=== PATIENT | female | born 1995 | race Caucasian/White ===

== ENCOUNTER 2018-07-26 11:44 | Emergency (ER) | payer OTHER ==
--- NOTE | 2018-07-26 12:13 | ED Physician Documentation ---
PD HPI GI BLEED - Stated complaint Stated Complaint: CRAMPING/RECTAL BLEEDING - Chief complaint Chief Complaint: Abd Pain - History obtained from History obtained from: Patient - History of Present Illness Timing - onset: How many weeks ago (1) Timing - duration: Weeks (1) Timing - details: Still present (more consistent and severe the past 1-2 days.), Intermittant Associated symptoms: Other (cramping lower abd pains bilaterally and in suprapubic area. Has had it worse and more often since yesterday. Was doubled over today. Had BM of formed stool and noted red blood when wiping after. Went again few minutes later and some red blood by itself (no clots). No dysuria. No vaginal bleeding.) Contributing factors: No: Sick contact, Bad food, Recent antibiotics Improved by: No: Eating Worsened by: No: Eating Similar symptoms before: No diagnosis (has had similar cramps prior to menses the past several months or more. This is worst so far and longer (usually starts period in 2-3 days after onset of the cramps).) Recently seen: Not recently seen Review of Systems Constitutional: denies: Fever, Chills, Myalgias Nose: denies: Rhinorrhea / runny nose, Congestion Throat: denies: Sore throat Cardiac: denies: Chest pain / pressure Respiratory: denies: Cough GI: reports: Abdominal Pain, Bloody / black stool (just today after having formed BM.). denies: Nausea, Vomiting, Diarrhea : reports: Missed period (was due for it about a week ago). denies: Dysuria, Frequency, Discharge Skin: denies: Rash, Lesions PD PAST MEDICAL HISTORY - Past Medical History Cardiovascular: None Respiratory: None Neuro: None Endocrine/Autoimmune: None GI: Hemorrhoids RN PSYCH: None (no known endometriosis, but FH of it. ) - Present Medications Home Medications: Ambulatory Orders Medication Instructions Recorded Confirmed Naproxen [Naprosyn] 500 mg PO BID PRN #30 tablet 07/26/18 Tramadol HCl 50 mg PO Q6H PRN #20 tablet 07/26/18 - Allergies Allergies/Adverse Reactions: Allergies Allergy/AdvReac Type Severity Reaction Status Date / Time No Known Drug Allergies Allergy Verified 07/26/18 11:54 PD ED PE NORMAL - Vitals Vital signs reviewed: Yes - General General: Alert and oriented X 3, Well developed/nourished, Other (appears uncomfortable due to lower abd cramping. ) - HEENT HEENT: Pharynx benign - Neck Neck: Supple, no meningeal sign, No adenopathy - Cardiac Cardiac: RRR, No murmur - Respiratory Respiratory: Clear bilaterally - Abdomen Abdomen: Normal bowel sounds, Soft, Non distended, No organomegaly, Other (tender lower abd/suprapubic area, left more than right. No guarding nor percussion tenderness. ) - Female Female : Deferred - Rectal Rectal: Other (k[employer] Tech in room. External with slight fissure at left lateral. Small internal hemorrhoid that is tender. Minimal stool in vault, which is guiac negative. ) - Back Back: No CVA TTP - Derm Derm: Normal color Results - Vitals Vitals: Vital Signs - 24 hr 07/26/18 11:51 Temperature 35.6 C L Heart Rate 58 L Respiratory 16 Rate Blood Pressure 118/85 H O2 Saturation 100 Oxygen O2 Source Room air - Rads (name of study) pelvic U/S Radiology: Prelim report reviewed (trace free fluid. No ovarian torsion. no cysts. ) Departure - Departure Disposition: 01 Home, Self Care Clinical Impression: Internal hemorrhoid, bleeding, Pelvic pain, Dysmenorrhea Condition: Stable Record reviewed to determine appropriate education?: Yes Instructions: ED Cramping Menstrual Follow-Up: [facility] [Provider Group] Prescriptions: Naproxen [Naprosyn] 500 mg PO BID PRN #30 tablet PRN Reason: Pain Tramadol HCl 50 mg PO Q6H PRN #20 tablet PRN Reason: Pain Comments: The red blood you had with your bowel movement seems to be from a small hemorrhoid. That should be okay. Your ultrasound did not show any obvious abnormality. There is good blood flow to the ovaries and no cysts or signs of bleeding. Presume its painful menstrual cramps. The ultrasound does not exclude endometriosis. Initially I would suggest some anti-inflammatories regularly twice a day for a week at the onset of your cramps until the.. Add Tylenol or tramadol if needed for worse pain. Follow-up with gynecology office regarding further evaluation and treatment. Discharge Date/Time: 07/26/18 15:31
[2018-07-26] MEDS ORDERED: HYDROcod/ACETAM 5/325 MG TABLET PO STA (12:42)
[2018-07-26] MEDS ORDERED: IBUPROFEN 600 MG TABLET PO STA (12:42)
[2018-07-26 13:09] LABS: BILIRUBIN,URINE NEGATIVE (NEGATIVE); GLUCOSE, URINE (UA) NEGATIVE (NEGATIVE); KETONES,URINE (UA) NEGATIVE (NEGATIVE); LEUKOCYTE ESTERASE, URINE NEGATIVE (NEGATIVE); NITRITE,URINE NEGATIVE (NEGATIVE); OCCULT BLOOD,URINE LARGE (NEGATIVE); PROTEIN,URINE 30 mg/dL (NEGATIVE); UROBILINOGEN,URINE 0.2 (NORMAL) E.U./dL (NORMAL)
[2018-07-26 13:11] LABS: CLARITY,URINE CLOUDY (CLEAR); HCG UR QUAL NEGATIVE
[2018-07-26 13:16] LABS: BACTERIA,URINE Few /HPF (None Seen); RBC,URINE TNTC /HPF (0-5); SQUAMOUS EPITHELIAL CELL,UR FEW Squamous (<= Few)
[2018-07-26 13:43] LABS: BASOPHILS % (AUTO) 0.3 %; EOSINOPHILS # (AUTO) 0.1 10^3/uL (0.0-0.7); EOSINOPHILS % (AUTO) 1.2 %; HGB - HEMOGLOBIN 13.9 g/dL (12.0-16.0); LYMPHOCYTES # (AUTO) 1.1 10^3/uL (1.5-3.5); LYMPHOCYTES % (AUTO) 11.4 %; MEAN CORPUSCULAR HEMOGLOBIN 28.5 pg (27.0-31.0); MEAN CORPUSCULAR HGB CONC 34.2 g/dL (32.0-36.0); MEAN CORPUSCULAR VOLUME 83.2 fL (81.0-99.0); MEAN PLATELET VOLUME 10.7 fL (7.9-10.8); MONOCYTES # (AUTO) 0.4 10^3/uL (0.0-1.0); MONOCYTES % (AUTO) 4.3 %; NEUTROPHILS # (AUTO) 7.8 10^3/uL (1.5-6.6); NEUTROPHILS % (AUTO) 82.8 %; PLT - PLATELET COUNT 190 10^3/uL (130-450); RED BLOOD COUNT 4.88 10^6/uL (4.20-5.40); WHITE BLOOD COUNT 9.4 x10^3/uL (4.8-10.8)
--- NOTE | 2018-07-26 14:50 | Ultrasound Report ---
Reason: lower abd/pelvic cramping for few days, severe Procedure Date: 07/26/2018 Accession Number: [id number] / [id number] Procedure: US - Pelvic w/Doppler Limited CPT Code: FULL RESULT: EXAM: PELVIC ULTRASOUND EXAM DATE: 07/26/2018 02:26 PM. CLINICAL HISTORY: Lower abd/pelvic cramping for few days, severe. COMPARISON: None available. TECHNIQUE: Realtime transabdominal pelvic scan performed to identify the uterus and adnexa and as an overview of other pelvic structures with static image documentation. FINDINGS: Uterus: 7.1 x 3.5 x 4.5 cm, volume 58.5 cc. Anteverted position. Normal overall size and echotexture. Masses: None. Endometrium: 8 mm. Normal. Cervix: Unremarkable. Right Ovary: 2.4 x 2.3 x 3.1 cm, volume 8.9 cc. Normal echotexture and blood flow. Left Ovary: 2.7 x 1.7 x 3.0 cm, volume 7.2 cc. Normal echotexture and blood flow. Free Fluid: Trace, likely physiologic. Other: None. IMPRESSION: No evidence of ovarian torsion. [facility]
[2018-07-26 15:16] VITALS: BP 114/73
== END 2018-07-26 15:31 | disposition home or self-care (01) ==
LOC: ED 11:44
DX: K64.8 Other hemorrhoids (principal); R10.2 Pelvic and perineal pain; N94.6 Dysmenorrhea, unspecified
CPT/HCPCS: 36415; 76856; 81001; 81025; 85025; 93976; 99283; A9270; 81003; 87086

== ENCOUNTER 2019-08-20 11:30 | Outpatient (CLI) | payer BC, OTHER | END 2019-08-20 23:59 | disposition home or self-care (01) | LOC: LAB.R 11:30 | PROVIDERS: ATTEND Nurse Practitioner Obstetrics & Gynecology | DX: R39.11 Hesitancy of micturition (principal) | CPT/HCPCS: 87086 ==

== ENCOUNTER 2021-03-06 08:00 | Outpatient (CLI) | payer BC | END 2021-03-06 23:59 | disposition home or self-care (01) | LOC: LAB.S 08:00 | PROVIDERS: ATTEND Physician Assistant | DX: R30.0 Dysuria (principal) | CPT/HCPCS: 87086 ==